=== PATIENT | female | born 1970 | race Hispanic/Latino ===

== ENCOUNTER → 2017-09-12 | Emergency (ER) | payer OTHER ==
[~2017-09-12] VITALS: Ht 154.9 cm; Wt 74.8 kg
[2017-09-12 12:26] LABS: STREPTOCOCCUS GRP A ANTIGEN NEGATIVE (NEGATIVE)
[2017-09-12 12:37] LABS: INFLUENZAE A&B ANTIGEN (RAPID) POSITIVE FLU B (NEGATIVE)
--- NOTE | 2017-09-12 13:09 | Diagnostic Imaging Report ---
PROCEDURE:CHEST 2 VIEWS TECHNIQUE:PA lateral chest INDICATION:Cough; fever COMPARISON:None. FINDINGS: Lungs are clear and symmetrically inflated. Mild central peribronchial cuffing. No pleural effusions. Normal heart size and mediastinal contour. Intact skeleton. CONCLUSION: Mild central interstitial opacity suggesting viral bronchitis in the setting of cough and fever. No evidence of pneumonia. Dictated by: Siva Davies M.D. on 09/12/2017 at 13:18 Electronically approved by: Siva Davise M.D. on 09/12/2017 at 13:18
--- NOTE | 2017-09-12 13:17 | Diagnostic Imaging Report ---
PROCEDURE:X-RAY RIGHT KNEE, THREE OR MORE VIEWS COMPARISON:None. INDICATIONS:RIGHT KNEE PAIN FINDINGS: The osseous structures are well developed and mineralized without evidence of fracture, dislocation, or degenerative changes. A subtle, sclerotic lesion in the posterior aspect patella measures 9 mm visible only on the lateral image. This may represent the sequela of remote injury. No joint effusion. CONCLUSION: No degenerative changes of the knee or joint effusion. Sclerotic patellar lesion as described above. Dictated by: Faisal Olguin M.D. on 09/12/2017 at 13:25 Electronically approved by: Faisal Olguin M.D. on 09/12/2017 at 13:25
== END | disposition home or self-care (01) ==
LOC: ER 11:04
DX: R50.9 Fever, unspecified (principal); R05 Cough; M79.1 Myalgia; J11.1 Influenza due to unidentified influenza virus with other respiratory manifestations; M25.561 Pain in right knee; W10.8XXA Fall (on) (from) other stairs and steps, initial encounter; Y92.008 Other place in unspecified non-institutional (private) residence as the place of occurrence of the external cause
CPT/HCPCS: 71020; 83518; 87070; 87400; 99283

== ENCOUNTER 2018-03-25 16:48 | Emergency (ER) | payer OTHER ==
[~2018-03-25] VITALS: Ht 154.9 cm; Wt 74.8 kg
[2018-03-25 19:04] LABS: BILIRUBIN,URINE NEGATIVE (NEGATIVE); CLARITY,URINE CLEAR (CLEAR); COLOR,URINE YELLOW (YELLOW); KETONES,URINE NEGATIVE (NEGATIVE); LEUKOCYTE ESTERASE ,URINE NEGATIVE (NEGATIVE); NITRITE,URINE NEGATIVE (NEGATIVE); PROTEIN,URINE DIPSTICK NEGATIVE (NEGATIVE); URINE UROBILINOGEN 0.2 mg/dL (0.2 - 1)
[2018-03-25 19:22] LABS: EPITHELIAL CELLS,URINE MODERATE /LPF; MUCUS,URINE FEW (RARE); TRANSITIONAL EPI CELLS,URINE RARE
[2018-03-25 19:23] LABS: BASOPHILS % 0.2 % (0.0-1.0); EOSINOPHILS # (AUTO) 0.4 (0.0-0.4); EOSINOPHILS % 3.8 % (0.0-6.0); HEMOGLOBIN 14.6 g/dL (12.0-16.0); LYMPHOCYTES # (AUTO) 2.7 (1.0-3.2); LYMPHOCYTES % 29.5 % (18.0-39.1); MEAN CORPUSCULAR VOLUME 88.3 fL (81-99); MONOCYTES # (AUTO) 0.5 (0.2-0.8); MONOCYTES % 5.8 % (4.4-11.3); NEUTROPHILS # (AUTO) 5.5 (2.1-6.9); NEUTROPHILS % 60.4 % (38.7-80.0); PLATELET COUNT 274 x10e3/uL (140-360); RED BLOOD COUNT 4.87 x10e6/uL (3.6-5.1); RED CELL DISTRIBUTION WIDTH 12.7 % (11.7-14.4)
[2018-03-25 19:41] LABS: ALANINE AMINOTRANSFERASE 38 IU/L (0-55); ALBUMIN 3.6 g/dL (3.5-5.0); ALBUMIN/GLOBULIN RATIO 1.1 (0.8-2.0); ALKALINE PHOSPHATASE 91 IU/L (40-150); AMYLASE 75 U/L (25-125); ANION GAP 12.3 mmol/L (8-16); BLOOD UREA NITROGEN 13 mg/dL (7-26); BUN/CREATININE RATIO 17 (6-25); CALCIUM 8.9 mg/dL (8.4-10.2); CARBON DIOXIDE 23 mmol/L (22-29); CHLORIDE 106 mmol/L (98-107); CREATININE, SERUM 0.76 mg/dL (0.57-1.11); EST GLOMERULAR FILTRATION RATE > 60 ML/MIN (60-); GLUCOSE 141 mg/dL (74-118); LIPASE 74 U/L (8-78); MAGNESIUM 1.9 MG/DL (1.3-2.1); POTASSIUM 3.3 mmol/L (3.5-5.1); SODIUM 138 mmol/L (136-145)
[2018-03-25] MEDS: ONDANSETRON HCL INJ 2 MG/ML VIAL IV STA ×2 (20:11→20:32)
--- NOTE | 2018-03-25 21:26 | Diagnostic Imaging Report ---
EXAM: CT ABDOMEN AND PELVIS with IV CONTRAST DATE: 03/25/2018 5:44 PM Time stamp on Exam: 2047 hours INDICATION: Vomiting, abdominal pain, left upper quadrant abdominal pain COMPARISON: None TECHNIQUE: The abdomen and pelvis were scanned using a multidetector helical scanner. Coronal and sagittal reformations were obtained. Routine protocol performed. IV Contrast: 100 cc Isovue 370 Oral Contrast: Water CTDIvol has been reviewed. It is below the limits set by the Radiation Protocol Committee (RPC). FINDINGS: LOWER THORAX: No consolidations LIVER: Cyst measuring 1 cm in the left lobe of the liver. BILIARY: The gallbladder is unremarkable. No ductal dilation. SPLEEN: No masses PANCREAS: No masses ADRENALS: No nodules KIDNEYS: Symmetric perfusion. No enhancing masses. No hydronephrosis. Simple cyst measuring 1.2 cm lateral aspect of the left kidney interpolar region. GI TRACT: No distention, wall thickening or evidence of obstruction. Normal appendix. VESSELS: Unremarkable PERITONEUM/RETROPERITONEUM: No free air or fluid LYMPH NODES: No lymphadenopathy REPRODUCTIVE ORGANS: Unremarkable BLADDER: Unremarkable SOFT TISSUES: Unremarkable BONES: No suspicious bone lesions. IMPRESSION: No acute findings in the abdomen or pelvis. Signed by: Dr. Emmie Solomon M.D. on 03/25/2018 9:23 PM
[2018-03-25] MEDS ORDERED: POTASSIUM CHLORIDE 20 MEQ TAB CR PO STA (22:01)
[2018-03-25] MEDS ORDERED: ONDANSETRON HCL 4 MG ORAL DISINTEGRATING TAB ONE (22:06)
[2018-03-25] MEDS ORDERED: ONDANSETRON HCL 4 MG ORAL DISINTEGRATING TAB PO ONE (22:15)
[2018-03-25] MEDS ORDERED: SODIUM CHLORIDE 0.9% 50ML 50 ML ONE (22:42)
[2018-03-25] MEDS ORDERED: IOPAMIDOL 370 MG/ML 200 ML INFUS..BTL INJ ONE (22:43)
== END 2018-03-25 22:23 | disposition home or self-care (01) ==
LOC: ER 16:48
DX: R10.12 Left upper quadrant pain (principal); R11.2 Nausea with vomiting, unspecified; E87.6 Hypokalemia; K52.9 Noninfective gastroenteritis and colitis, unspecified
CPT/HCPCS: 36415; 74177; 80053; 81001; 82150; 83690; 83735; 84702; 85025; 96374; 99284; J2405; Q9967

== ENCOUNTER 2018-09-02 19:39 | Emergency (ER) | payer OTHER ==
[~2018-09-02] VITALS: Ht 154.9 cm; Wt 74.8 kg
--- OUTSIDE RECORDS SUMMARY | 2018-09-02 19:42 | XMS REPORT | Continuity of Care Document ---
Author Author [facility] Address Unknown Phone Unavailable Problems Problem Status Onset Date Classification Date Reported Comments Source Acute pharyngitis 05/26/2018 Diagnosis 05/26/2018 [facility] Cough 05/26/2018 Diagnosis 05/26/2018 [facility] Influenza-like symptoms 05/26/2018 Diagnosis 05/26/2018 [facility] Body mass index 30+ - obesity 05/26/2018 Diagnosis 05/26/2018 [facility] Upper respiratory infection 06/04/2017 Diagnosis 06/05/2017 [facility] Feeling feverish 06/04/2017 Diagnosis 06/05/2017 [facility] Pain in throat 06/04/2017 Diagnosis 06/05/2017 [facility] Overweight Active Diagnosis 05/02/2013 [facility] BMI 32.0-32.9,ADULT Active Diagnosis 05/02/2013 [facility] Hypothyroidism Active Diagnosis 05/02/2013 [facility] Wheezing Active Diagnosis 09/01/2013 [facility] Acute bronchitis Active Diagnosis 09/01/2013 [facility] Tobacco use disorder Active Problem 09/01/2013 [facility] Acute pharyngitis Active Diagnosis 09/01/2013 [facility] Cough Active Diagnosis 09/01/2013 [facility] H. INFLUENZAE INFECT NOS Active Diagnosis 09/01/2013 [facility] Acute Upper Respiratory Infection Problem 06/05/2017 [facility] Fever Problem 06/05/2017 [facility] Medications Medication Details Route Status Patient Instructions Ordering Provider Order Date Source Chlorpheniramine Polistirex- Hydrocodone Polistirex ER 5 mL orally Active 8 mg-10 mg/5 mL orally every 12 hours KEATING 08/25/2013 [facility] Tamiflu 1 cap(s) orally Active 75 mg orally 2 times a day KEATING 08/25/2013 [facility] ProAir HFA 2 puff(s) inhaled Active CFC free 90 mcg/inh inhaled 4 times a day KEATING 08/25/2013 [facility] azithromycin 2 tablets on the first day, then 1 tablet daily for 4 days orally Active 250 mg orally once a day KEATING 08/25/2013 [facility] Xanax 1 tab(s) orally Active 1 mg orally BID prn KEATING 03/02/2013 [facility] Acetaminophen 300 MG / Codeine Phosphate 30 MG Oral Tablet acetaminophen 300 mg-codeine 30 mg tablet Active [facility] Brompheniramine Maleate 0.4 MG/ML / Dextromethorphan Hydrobromide 2 MG/ML / Pseudoephedrine Hydrochloride 6 MG/ML Oral Solution [Bromfed DM] Bromfed DM 2 mg-30 mg-10 mg/5 mL syrup Take 10 mL every 4 hours by oral route as needed for 7 days. Active [facility] varenicline 1 MG Oral Tablet Chantix Continuing Month Box 1 mg tablet Active [facility] Chantix Starting Month Box 0.5 mg (11)-1 mg (42) tablets in dose pack Chantix Starting Month Box 0.5 mg (11)-1 mg (42) tablets in dose pack Active [facility] chlorhexidine gluconate 1.2 MG/ML Mouthwash chlorhexidine gluconate 0.12 % mouthwash Active [facility] Daily Vitamin Daily Vitamin Active [facility] 24 HR Diethylpropion Hydrochloride 75 MG Extended Release Oral Tablet diethylpropion ER 75 mg tablet,extended release TK 1 T PO QD Active [facility] Folic Acid 1 MG Oral Tablet folic acid 1 mg tablet Active [facility] Hydrochlorothiazide 12.5 MG Oral Capsule hydrochlorothiazide 12.5 mg capsule Active [facility] Hydrochlorothiazide 12.5 MG Oral Tablet hydrochlorothiazide 12.5 mg tablet TK 1 T PO QD Active [facility] 24 HR phendimetrazine tartrate 105 MG Extended Release Oral Capsule phendimetrazine tartrate ER 105 mg capsule,extended release TK 1 C PO QD Active [facility] Phentermine Hydrochloride 37.5 MG Oral Tablet phentermine 37.5 mg tablet TK 1 T PO QD Active [facility] 200 ACTUAT Albuterol 0.09 MG/ACTUAT Dry Powder Inhaler [ProAir] ProAir RespiClick 90 mcg/actuation breath activated Inhale 2 puffs every 4 hours by inhalation route as needed. Active [facility] Lidocaine Hydrochloride 20 MG/ML Mucous Membrane Topical Solution Lidocaine Viscous 2 % mucosal solution Take 15 mL every 3 hours by oral route as needed for 5 days. Active [facility] Oseltamivir 75 MG Oral Capsule [Tamiflu] Tamiflu 75 mg capsule Take 1 capsule twice a day by oral route for 5 days. Active [facility] Azithromycin 250 MG Oral Tablet Zithromax Z-Emory 250 mg tablet Take 2 TABLET EVERY DAY by oral route for 1 day, then 1 tab po daily for 4 days Active [facility] Brompheniramine Maleate 0.4 MG/ML / Dextromethorphan Hydrobromide 2 MG/ML / Pseudoephedrine Hydrochloride 6 MG/ML Oral Solution [id number]-ldijyzvahuxusfn-IC 2 mg-30 mg-10 mg/5 mL syrup TK 2 CAMILLE PO Q 4 H PRN Active [facility] Allergies, Adverse Reactions, Alerts Substance Category Reaction Severity Reaction type Status Date Reported Comments Source Penicillins Hives Allergy to substance 07/29/2012 [facility] penicillin Adverse Reaction Hives Adverse Reaction Active 08/25/2013 [facility] Immunizations Immunization Date Given Site Status Last Updated Comments Source Depo-medrol 80mg 08/25/2013 completed [facility] Results Order Name Results Value Reference Range Date Interpretation Comments Source RESULT negative 05/26/2018 [facility] SWAB LOCATION Left and Right tonsillar pillars 05/26/2018 [facility] Influenza A negative 05/26/2018 [facility] Influenza B negative 05/26/2018 [facility] RESULT negative 06/05/2017 [facility] SWAB LOCATION Left and Right tonsillar pillars 06/05/2017 [facility] Influenza A negative 06/05/2017 [facility] Influenza B negative 06/05/2017 [facility] RESULT negative 06/04/2017 [facility] SWAB LOCATION Left and Right tonsillar pillars 06/04/2017 [facility] Influenza A negative 06/04/2017 [facility] Influenza B negative 06/04/2017 [facility] Vital Signs Vital Sign Value Date Comments Source Diastolic (mm Hg) 72 05/26/2018 [facility] Height 61 05/26/2018 [facility] Systolic (mm Hg) 120 05/26/2018 [facility] Weight 176 05/26/2018 [facility] Diastolic (mm Hg) 80 06/05/2017 [facility] Height 61 06/05/2017 [facility] Systolic (mm Hg) 128 06/05/2017 [facility] Weight 167 06/05/2017 [facility] Diastolic (mm Hg) 82 06/04/2017 [facility] Height 61 06/04/2017 [facility] Systolic (mm Hg) 130 06/04/2017 [facility] Weight 160 06/04/2017 [facility] Temperature Oral (F) 98.9 F 08/25/2013 [facility] Weight 176 08/25/2013 [facility] Height 61 08/25/2013 [facility] Respitory Rate 16 08/25/2013 [facility] Heart Rate 79 08/25/2013 [facility] Diastolic (mm Hg) 78 08/25/2013 [facility] Systolic (mm Hg) 122 08/25/2013 [facility] Temperature Oral (F) 99.9 F 02/24/2013 [facility] Weight 174 02/24/2013 [facility] Height 61 02/24/2013 [facility] Respitory Rate 16 02/24/2013 [facility] Heart Rate 82 02/24/2013 [facility] Diastolic (mm Hg) 80 02/24/2013 [facility] Systolic (mm Hg) 124 02/24/2013 [facility] Encounters Location Location Details Encounter Type Encounter Number Reason For Visit Attending Provider ADM Date DC Date Status Source [facility] [facility] [id number] 02/24/2013 02/24/2013 [facility] [id number] 02/24/2013 02/24/2013 [facility] Unknown [id number] 02/27/2013 02/27/2013 [facility] Unknown [id number] 02/27/2013 02/27/2013 [facility] Unknown [id number] 02/27/2013 02/27/2013 [facility] fever/vomiting [id number] 08/25/2013 08/25/2013 [facility] [place] [facility] - [id number] Mickey Berumen, [employer]ID SYSTEMS ARCHITECT-C: [address], [place] [address], Ph. [id number] Mickey Berumen 06/04/2017 [facility] [place] [facility] [id number] Mickey Berumen, [employer] SYSTEM[employer] ARCHITECT-C: [address], [place] [address], Ph. [id number] Mickey Berumen 06/04/2017 [facility] [place] [facility] [id number] Sasha Olguin, [employer] ARCHITECT-C: [address] [facility], [place] [address], Ph. [phone] [id number] Sasha Olguin 06/05/2017 [facility] [place] [facility] [id number] DIPAK DaltonC: [address], [place] [address], Ph. [id number] Esau Velazquez 05/26/2018 [facility] Procedures Procedure Code Date Perfomer Comments Source
--- OUTSIDE RECORDS SUMMARY | 2018-09-02 19:42 | XMS REPORT | Clinical Summary ---
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 12/03/2017 naproxen (NAPROSYN) 375 Take 1 tablet 20 tablet 0 12/03/201 MG tablet (375 mg 7 total) by mouth 2 (two) times daily with breakfast and dinner. Active Problems Problem Noted Date Smoking 11/14/2015 Right temporal headache 11/14/2015 Facial muscle weakness 11/13/2015 Hypertension 11/13/2015 Family History Medical History Relation Name Comments Diabetes Father Kidney disease Father Vision loss Father Hypertension Mother Hyperthyroidism Mother Hyperthyroidism Sister Relation Name Status Comments Father Mother Sister Social History Date Tobacco Use Types Packs/Day Years Used Former Smoker 0.25 Tobacco Cessation: Ready to Quit: Yes; Counseling Given: Yes Alcohol Use Drinks/Week oz/Week Comments No Sex Assigned at Date Recorded Not on file Industry Job Start Date Occupation Not on file Not on file Not on file Travel End Travel History Travel Start No recent travel history available. Last Filed Vital Signs Not on file Plan of Treatment Not on file Results Not on fileafter 09/01/2017 Insurance Payer Benefit Subscriber ID Type Phone Address Plan / Group [facility] [place] [facility] (Home) [place] [address] Advance Directives For more information, please contact: [address] [address] Date Inactivated Comments Code Status Date Activated 11/14/2015 11:41 PM Full Code 11/13/2015 11:43 PM This code status was determined by: Patient
--- OUTSIDE RECORDS SUMMARY | 2018-09-02 19:42 | XMS REPORT ---
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 2 kids February 24, 2013 Marital Status: . February 24, 2013 Caffeine: . 1 cup of coffee/soda/tea per day February 24, 2013 Exercise: . 4 x week February 24, 2013 Tobacco Use: . Are you a: Current smoker PPD: 5-6 cig a day February 24, 2013 Alcohol Use: . Status: Socially February 24, 2013 Occupation: . employed February 24, 2013 Vital Signs Date/Time: February 24, 2013 Temperature 99.9 F Weight 174 lbs Height 61 inches Respiratory Rate 16 per Minute Cardiac Monitoring Heart Rate 82 Beats per Minute Blood Pressure Diastolic 80 mm Hg Blood Pressure Systolic 124 mm Hg Oximetry 98 % Results T4, FREE T3, FREE TSH, 3RD GENERATION Summary Purpose [employer] Submission
--- OUTSIDE RECORDS SUMMARY | 2018-09-02 19:42 | XMS REPORT | Encounter Summary ---
Author Organization Unknown Address [address] [place] [address] Phone [phone] Reason for Visit Medical Complaint Instructions 1. Upper respiratory infection upper respiratory infection (cold): care instructions Bromfed DM 2 mg-30 mg-10 mg/5 mL syrup ProAir RespiClick 90 mcg/actuation breath activated 2. Feeling feverish rapid flu (A+B) 3. Pain in throat sore throat: care instructions rapid strep group A, throat Discussion Note: None recorded. Plan of Care Patient Instructions take bromfed as needed. it can cause drowsiness. do not drive will on this medication. follow up pcp Reminders Provider Appointments None recorded. Lab Rapid Flu (A+B) 06/04/2017 [facility] Rapid Strep Group a, Throat 06/04/2017 [facility] Referral None recorded. Procedures None recorded. Surgeries None recorded. Imaging None recorded. Medications Name Start Date acetaminophen 300 mg-codeine 30 mg tablet Bromfed DM 2 mg-30 mg-10 mg/5 mL syrup Take 10 mL every 4 hours by oral route as needed. Chantix Continuing Month Box 1 mg tablet Chantix Starting Month Box 0.5 mg (11)-1 mg (42) tablets in dose pack chlorhexidine gluconate 0.12 % mouthwash Daily Vitamin diethylpropion ER 75 mg tablet,extended release TK 1 T PO QD folic acid 1 mg tablet hydrochlorothiazide 12.5 mg capsule hydrochlorothiazide 12.5 mg tablet TK 1 T PO QD phendimetrazine tartrate ER 105 mg capsule,extended release TK 1 C PO QD phentermine 37.5 mg tablet TK 1 T PO QD ProAir RespiClick 90 mcg/actuation breath activated Inhale 2 puffs every 4 hours by inhalation route as needed. Medications Administered None recorded. Vitals Height Weight BMI Blood Pressure 5 ft 1 in 160 lbs 30.2 kg/m2 130/82 mm[Hg] Lab Results Date Name Specimen Result Interpretation Description Value Range Status Address Rapid Strep Group a, Throat Result negative [facility]: [facility] Swab Location Left and Right tonsillar pillars [facility]: [facility] Rapid Flu (A+B) Influenza a negative [facility]: [facility] Influenza B negative [facility]: [facility] Allergies Code Code System Name Reaction Severity Status Onset Penicillins Hives Active Problems Name Status Onset Date Source Acute Upper Respiratory Infection Active Encounter Fever Active Encounter Procedures None recorded. Vaccine List None recorded. Social History Smoking Status Current Some Day Smoker Past Encounters 06/04/2017 Upper Respiratory Infection; Feeling Feverish; Pain in Throat JOON Dominguez-C: [address] [place] [address], Ph. History of Present Illness [id number]-Mxgeyzv Reported By: Patient HPI: Location: throat, chest. Quality: nasal/sinus congestion, dry cough. Duration: 1days. Severity: moderate. Onset/Timing: gradual. Context: no foreign travel, non-smoker, sick contact. Modifying factors: OTC medication. Associated Symptoms: no sputum production, no shortness of breath, no wheezing, no change in number of pillows needed to sleep at night, no sweats, no significant weight gain, no significant weight loss, no morning cough, no vomiting, no diarrhea, no rash, no nausea, no fever, sore throat, muscle aches Review of Systems:ROS as noted in the HPI Review of Systems Basic Reported By: Patient Physical Exam Adult Basic, Adult Female Complete Reported By: Patient Constitutional: General Appearance: healthy-appearing, well-nourished, well-developed. Level of Distress: NAD. Ambulation: ambulating normally Psychiatric: Mental Status: active and alert Eyes: Lids and Conjunctivae: non-injected, no discharge Rhs-Jzmz-Zipur-Throat: Ears: no lesions on external ear, no outer ear tenderness, EACs clear, TMs clear. Hearing: no hearing loss. Nose: no lesions on external nose, nares patent, no septal deviation, nasal passages clear, no sinus tenderness, no nasal discharge. Lips, Teeth, and Gums: no mouth or lip ulcers. Oropharynx: moist mucous membranes, no erythema, no exudates, tonsils not enlarged Neck: Neck: trachea midline. Lymph Nodes: no cervical LAD Lungs: Respiratory effort: no dyspnea, no tachypnea, no use of accessory muscles, no intercostal retractions. Auscultation: breath sounds normal Cardiovascular: Heart Auscultation: RRR, no murmurs
--- OUTSIDE RECORDS SUMMARY | 2018-09-02 19:42 | XMS REPORT | Encounter Summary ---
Author Organization Unknown Address [address] [place] [address] Phone [phone] Reason for Visit Medical Complaint Instructions 1. Body mass index 30+ - obesity 2. Influenza-like symptoms rapid flu (A+B) Tamiflu 75 mg capsule 3. Cough cough: care instructions Bromfed DM 2 mg-30 mg-10 mg/5 mL syrup 4. Acute pharyngitis rapid strep group A, throat sore throat: care instructions Lidocaine Viscous 2 % mucosal solution Zithromax Z-Emory 250 mg tablet culture, respiratory Discussion Note discussed with patient to monitor for fever and any change in symptoms, return to clinic or follow up with pcp. continue tylenol or ibuprofen for discomfort. patient verbalized understanding. Plan of Care Reminders Provider Appointments None recorded. Lab Rapid Flu (A+B) 05/26/2018 [facility] Rapid Strep Group a, Throat 05/26/2018 [facility] Culture, Respiratory 05/26/2018 [facility] Referral None recorded. Procedures None recorded. Surgeries None recorded. Imaging None recorded. Medications Name Start Date Bromfed DM 2 mg-30 mg-10 mg/5 mL syrup Take 10 mL every 4 hours by oral route as needed for 7 days. Daily Vitamin folic acid 1 mg tablet Lidocaine Viscous 2 % mucosal solution Take 15 mL every 3 hours by oral route as needed for 5 days. Tamiflu 75 mg capsule Take 1 capsule twice a day by oral route for 5 days. Zithromax Z-Emory 250 mg tablet Take 2 TABLET EVERY DAY by oral route for 1 day, then 1 tab po daily for 4 days Medications Administered None recorded. Vitals Height Weight BMI Blood Pressure 5 ft 1 in 176 lbs 33.3 kg/m2 120/72 mm[Hg] Lab Results Date Name Specimen Result Interpretation Description Value Range Status Address Rapid Strep Group a, Throat Result negative [facility]: [address] [place] [address] Swab Location Left and Right tonsillar pillars [facility]: [address] [place] [address] Rapid Flu (A+B) Influenza a negative [facility]: [facility] Influenza B negative [facility]: [facility] Allergies Code Code System Name Reaction Severity Status Onset Penicillins Hives Active Problems No Known Problems Procedures None recorded. Vaccine List None recorded. Social History Smoking Status Former Smoker Past Encounters 05/26/2018 Body Mass Index 30+ - Obesity; Influenza-like Symptoms; Cough; Acute Pharyngitis Esau Velazquez PA-C: [address] [place] [address], Ph. History of Present Illness Onbtile-Tznmn-Pty Reported By: Patient HPI: Quality: cannot identify. Duration: intermittent, 1 days. Severity: subjective temperature. Onset/Timing: first recorded yesterday. Context: no tick/insect bites, no recent travel, no new medications, ill contacts. Associated Symptoms: no rash, no lethargy, fever/chills, headache, muscle aches, cold symptoms, generalized pain, tired (fatigue), cough, nasal passage blockage (stuffiness), nasal discharge; ST 8/10. Modifying Factors OTC medication Review of Systems Basic Reported By: Patient Constitutional: Constitutional: fever; subjective Eyes: Eyes: no eye complaints Pyzt-Rone-Teycg-Throat: Ears: no ear complaints. Nose: nose/sinus problems. Mouth/Throat: no bleeding gums, no mouth complaints, no teeth problems, sore throat Cardiovascular: Cardiovascular: no chest pain, no shortness of breath, no known heart murmur Respiratory: Respiratory: no wheezing, cough, shortness of breath Gastrointestinal: Gastrointestinal: no abdominal pain, no vomiting / diarrhea Genitourinary: Genitourinary: no urinary complaints, no discharge Musculoskeletal: Musculoskeletal: no muscle weakness, no arthralgias/joint pain, no back pain, muscle aches Skin: Skin: no abnormal / changing mole, no jaundice, no rashes Neurologic: Neurologic: no loss of consciousness, no weakness, no numbness, no seizures, no headaches, dizziness, headache Physical Exam Adult Basic Reported By: Patient Constitutional: General Appearance: healthy-appearing, well-nourished, well-developed, overweight. Level of Distress: NAD. Ambulation: ambulating normally Psychiatric: Mental Status: active and alert. Orientation: to time, to place, to person Eyes: Lids and Conjunctivae: non-injected, no discharge, no pallor. Pupils: PERRLA. EOM: EOMI. Sclerae: non-icteric. Vision: acuity grossly intact Wqr-Junm-Ewwht-Throat: Ears: no lesions on external ear, no outer ear tenderness, EACs clear, TMs clear. Hearing: no hearing loss. Nose: no lesions on external nose, nares patent, no septal deviation, nasal passages clear, no sinus tenderness, nasal discharge, nasal discharge--purulent, nasal discharge--rhinorrhea, post nasal drip. Lips, Teeth, and Gums: no mouth or lip ulcers, no bleeding gums, normal dentition. Oropharynx: moist mucous membranes, no exudates, erythema, tonsils absent Neck: Neck: supple, trachea midline, no masses, FROM. Lymph Nodes: no cervical LAD, no supraclavicular LAD Lungs: Respiratory effort: no dyspnea, no tachypnea, no use of accessory muscles, no intercostal retractions. Auscultation: breath sounds normal Cardiovascular: Heart Auscultation: RRR, no murmurs
--- OUTSIDE RECORDS SUMMARY | 2018-09-02 19:42 | XMS REPORT | Clinical Summary ---
Author Author [facility] Organization [facility] Address Unknown Phone Unavailable Care Team Providers Care Plant Safety Leader Name Role Phone Anette Loja MD PCP Allergies Comments Active Allergy Reactions Severity Noted Date Not anaphylaxis Latex Rash Low 12/04/2016 Penicillins Hives 05/10/2014 Medications End Date Status Medication Sig Dispensed Refills Start Date Active acetaminophen-codeine 0 (TYLENOL WITH CODEINE #3) 7 300-30 mg per tablet Active CHANTIX CONTINUING MONTH TAKE 1 56 tablet 0 BOX 1 mg tablet TABLET(1 MG) 8 BY MOUTH TWICE DAILY WITH FULL GLASS OF WATER 04/01/2018 Discontinued varenicline (CHANTIX Take 1 tablet 60 tablet 2 CONTINUING MONTH AMRITA) 1 (1 mg total) 7 mg tablet by mouth 2 (two) times a day for 90 days. Take with full glass of water. 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 Hypertension 11/13/2015 Encounters Care Team Description Date Type Specialty Anette Loja MD 04/01/2018 Refill Internal Medicine after 09/01/2017 Family History Medical History Relation Name Comments Diabetes Father Hypertension Mother Hypothyroidism Mother Ovarian cancer Mother Breast cancer Neg Hx Colon cancer Neg Hx Relation Name Status Comments Father Mother Social History Date Tobacco Use Types Packs/Day Years Used Current Every Day Smoker Cigarettes 0.3 29 Tobacco Cessation: Counseling Given: No Comments: started age 17 Alcohol Use Drinks/Week oz/Week Comments Yes occasional Sex Assigned at Date Recorded Not on file Industry Job Start Date Occupation Not on file Not on file Not on file Travel End Travel History Travel Start No recent travel history available. Last Filed Vital Signs Not on file Plan of Treatment Health Maintenance Due Date Last Done Comments BREAST CANCER SCREENING 01/08/2018 SHINGLES VACCINES (1 of 01/08/2018 2) INFLUENZA VACCINE 04/02/2018 CERVICAL CANCER SCREENING 12/05/2019 12/04/2016 COLON CANCER SCREENING 12/04/2026 12/04/2016 Results Not on fileafter 09/01/2017 Insurance Payer Benefit Subscriber ID Type Phone Address Plan / Group [facility] xxxxxxxxx HMO/PPO THCARE CHOICE/CHO ICE + Advance Directives Patient has advance care planning documents on file. For more information, ricardo malagon contact: Steve Lara [address] [place] [address]
--- OUTSIDE RECORDS SUMMARY | 2018-09-02 19:42 | XMS REPORT | Encounter Summary ---
Author Organization Unknown Address [address] [place] [id number] Phone [phone] Reason for Visit Medical Complaint Instructions 1. Upper respiratory infection upper respiratory infection (cold): care instructions azithromycin 250 mg tablet Discussion Note Buy the proair as prescribed yesterday Plan of Care Patient Instructions Follow up with PCP or go to ER or urgent care if symptoms get worsen Reminders Provider Appointments None recorded. Lab None recorded. Referral None recorded. Procedures None recorded. Surgeries None recorded. Imaging None recorded. Medications Name Start Date acetaminophen 300 mg-codeine 30 mg tablet azithromycin 250 mg tablet Take 2 TABLET EVERY DAY by oral route for 1 day, then 1 tab po daily for 4 days ioemptrevozvpml-jywhtbqxpfjntjm-FD 2 mg-30 mg-10 mg/5 mL syrup TK 2 CAMILLE PO Q 4 H PRN Chantix Continuing Month Box 1 mg tablet [...] BMI Blood Pressure 5 ft 1 in 167 lbs 31.6 kg/m2 128/80 mm[Hg] Lab Results Date Name Specimen Result Interpretation Description Value Range Status Address Rapid Strep Group a, Throat Result negative [facility]: [address] [place] [address] Swab Location Left and Right tonsillar pillars [facility]: [address] [place] [address] Rapid Flu (A+B) Influenza a negative [facility]: [facility] Influenza B negative [facility]: [facility] Allergies Code Code System Name Reaction Severity Status Onset Penicillins Hives Active Problems Name Status Onset Date Source Acute Upper Respiratory Infection Active Encounter Fever Active Encounter Procedures None recorded. Vaccine List None recorded. Social History Smoking Status Current Some Day Smoker Past Encounters 06/05/2017 Upper Respiratory Infection Sasha Olguin, [facility]: [address], [place] [address], Ph. [phone] 06/04/2017 Upper Respiratory Infection; Feeling Feverish; Pain in Throat Mcikey [place], [facility]: [address] [place] [address], Ph. History of Present Illness Cough Reported By: Patient HPI: Quality: productive cough, colored phlegm, congested, wheezy cough. Duration: 3 days. Severity: moderate. Onset/Timing: gradual. Context: no sick contacts, no foreign travel, non-smoker, allergies. Associated Symptoms: no sputum production, no shortness of breath, no wheezing, no sweats, no significant weight gain, no significant weight loss, no morning cough, no sore throat, no vomiting, no diarrhea, no rash, no nausea, no fever/chills, no headache, muscle aches; sore throat Review of Systems Basic Reported By: Patient Constitutional: Constitutional: no fever Eyes: Eyes: no eye complaints Vurh-Rdhr-Ojjlg-Throat: Ears: no ear complaints. Nose: nose/sinus problems. Mouth/Throat: no mouth complaints, sore throat Cardiovascular: Cardiovascular: no chest pain, no shortness of breath Respiratory: Respiratory: cough; pt has coughing spells, she was seen yesterday at [facility]; bromfed and proair prescribed; she didn't buy the proair due to cost; now she is coughing out yellow mucous; rapid strep and flu -ve from yesterday; per pt the symptoms are getting worse Gastrointestinal: Gastrointestinal: no abdominal pain, no vomiting / diarrhea Musculoskeletal: Musculoskeletal: muscle aches Skin: Skin: no rashes Neurologic: Neurologic: no loss of consciousness, no weakness, no numbness, no seizures, no dizziness, no headaches Physical Exam Adult Basic, Adult Female Complete, Adult Male Complete Reported By: Patient Constitutional: General Appearance: healthy-appearing, well-nourished, well-developed. Level of Distress: NAD. Ambulation: ambulating normally Psychiatric: Mental Status: active and alert. Orientation: to time, to place, to person Nhe-Xqsv-Jqdhp-Throat: Ears: no lesions on external ear, no outer ear tenderness, EACs clear, TMs clear, TM mobility normal. Hearing: no hearing loss. Nose: no lesions on external nose, nares patent, no septal deviation, nasal passages clear, no sinus tenderness, no nasal discharge. Lips, Teeth, and Gums: no mouth or lip ulcers, no bleeding gums, normal dentition. Oropharynx: moist mucous membranes, no exudates, tonsils not enlarged, erythema Neck: Lymph Nodes: no cervical LAD Lungs: Respiratory effort: no dyspnea, no tachypnea, no use of accessory muscles, no intercostal retractions. Auscultation: breath sounds normal, good air movement Cardiovascular: Heart Auscultation: RRR, no murmurs Neurologic: Gait and Station: normal gait, normal station
--- OUTSIDE RECORDS SUMMARY | 2018-09-02 19:42 | XMS REPORT ---
Author Author JOSEPHINE MENDENHALL eClinical[employer] Address Unknown Phone Unavailable Care Team Providers Care Test Design Engineer Name Role Phone JOSEPHINE MENDENHALL CP Unavailable Encounters Encounter Location Date Unknown [facility] February 27, 2013 Medications Medication Code System Code Instructions Start Date End Date Status Dosage Xanax MULTUM 1327 1 mg orally BID prn March 02, 2013 Active 1 tab(s) Social History Social History Element Qualifiers Date [...] Systolic 124 mm Hg Oximetry 98 % Summary Purpose eClinicalWorks Submission
--- OUTSIDE RECORDS SUMMARY | 2018-09-02 19:42 | XMS REPORT ---
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 INFLUENZAE INFECT NOS 041.5 Active Medications Medication Code System Code Instructions Start Date End Date Status Dosage Chlorpheniramine Polistirex- Hydrocodone Polistirex ER MULTUM 137948 8 mg-10 mg/5 mL orally every 12 hours Aug 25, 2013 Active 5 mL Tamiflu MULTUM 44398 75 mg orally 2 times a day Aug 25, 2013 Active 1 cap(s) ProAir HFA MULTUM 89308 CFC free 90 mcg/inh inhaled 4 times a day Aug 25, 2013 Active 2 puff(s) azithromycin MULTUM 54428 250 mg orally once a day Aug 25, 2013 Active 2 tablets on the first day, then 1 tablet daily for 4 days Xanax MULTUM 1327 1 mg orally BID prn March 02, 2013 Active 1 tab(s) Social History Social History Element Qualifiers Date Reported Children: . 2 kids Aug 25, 2013 Marital Status: . Aug 25, 2013 Caffeine: . 1 cup of coffee/soda/tea per day Aug 25, 2013 Exercise: . 4 x week Aug 25, 2013 Tobacco Use: . Are you a: Current smoker PPD: 5-6 cig a day Aug 25, 2013 Alcohol Use: . Status: Socially Aug 25, 2013 Occupation: . employed Aug 25, 2013 Vital Signs Date/Time: Aug 25, 2013 Temperature 98.9 F Weight 176 lbs Height 61 inches Respiratory Rate 16 per Minute Cardiac Monitoring Heart Rate 79 Beats per Minute Blood Pressure Diastolic 78 mm Hg Blood Pressure Systolic 122 mm Hg Oximetry 98 % Results Influenza Screening A&B - In House Strep Screen (rapid) - In House Immunizations Vaccine Administration Date Depo-medrol 80mg Aug 25, 2013 Summary Purpose eClinicalWorks Submission
[2018-09-02] MEDS ORDERED: KETOROLAC TROMETHAMINE 60 MG/2 ML VIAL IM ONE (20:45)
[2018-09-02] MEDS ORDERED: ACETAMINOPHEN/CODEINE 300MG - 30MG TAB PO ONE (21:00)
[2018-09-02] MEDS ORDERED: ONDANSETRON HCL 4 MG ORAL DISINTEGRATING TAB PO ONE (21:00)
--- NOTE | 2018-09-02 21:17 | Diagnostic Imaging Report ---
KNEE RIGHT THREE VIEWS HISTORY: Pain. COMPARISON: Right knee radiographs 09/12/2017 FINDINGS: Bones: No acute displaced fracture. No erosions or focal demineralization. Osseous alignment is within normal limits. Joints: The joint spaces are well-maintained. Soft tissues: Moderate sized suprapatellar joint effusion, previously small. IMPRESSION: No acute bony abnormality. Moderate sized suprapatellar joint effusion. Signed by: DR. Americo Araiza MD on 09/02/2018 9:13 PM
[2018-09-02 23:04] LABS: BASOPHILS # (AUTO) 0.1 (0.0-0.1); BASOPHILS % 0.7 % (0.0-1.0); EOSINOPHILS # (AUTO) 0.4 (0.0-0.4); HEMATOCRIT 43.7 % (34.2-44.1); HEMOGLOBIN 14.6 g/dL (12.0-16.0); LYMPHOCYTES # (AUTO) 2.6 (1.0-3.2); LYMPHOCYTES % 29.2 % (18.0-39.1); MEAN CORPUSCULAR HEMOGLOBIN 30.2 pg (28-32); MEAN CORPUSCULAR HGB CONC 33.4 g/dL (31-35); MEAN CORPUSCULAR VOLUME 90.5 fL (81-99); MONOCYTES # (AUTO) 0.7 (0.2-0.8); MONOCYTES % 8.3 % (4.4-11.3); NEUTROPHILS % 56.5 % (38.7-80.0); PLATELET COUNT 292 x10e3/uL (140-360); RED BLOOD COUNT 4.83 x10e6/uL (3.6-5.1); RED CELL DISTRIBUTION WIDTH 12.4 % (11.7-14.4)
== END 2018-09-03 00:15 | disposition home or self-care (01) ==
LOC: ER 19:39
DX: M25.561 Pain in right knee (principal); M17.11 Unilateral primary osteoarthritis, right knee
CPT/HCPCS: 36415; 73562; 85025; 99283; J1885; Q0162